=== PATIENT | female | born 1995 | race Two or more races ===

== ENCOUNTER 2021-08-05 21:26 | Emergency (ER) | payer OTHER ==
[~2021-08-05] VITALS: Ht 162.6 cm; Wt 59.0 kg
[2021-08-05] MEDS ORDERED: DICLOFENAC POTA50 MG PO (22:52)
[2021-08-05] MEDS ORDERED: CYCLOBENZAPRINE10 MG PO (22:52)
== END 2021-08-05 23:22 ==
LOC: ER 21:26
DX: M94.0 Chondrocostal junction syndrome [Tietze] (principal)

== ENCOUNTER 2021-12-03 05:37 | Inpatient (IN) | payer OTHER ==
[~2021-12-03] VITALS: Ht 157.5 cm; Wt 68.0 kg
[~2021-12-03 05:37] MED LIST: CYCLOBENZAPRINE10 MG PO; DICLOFENAC POTA50 MG PO
[2021-12-03] MEDS ORDERED: PRENATAL TABLE1 EAC5 PO (05:55)
[2021-12-03] MEDS ORDERED: FUSION PLUS CA1 EACH PO (05:56)
[2021-12-06] MEDS ORDERED: COLACE100 MG PO (06:46)
[2021-12-06] MEDS ORDERED: SIMETHICONE80 MG PO (06:47)
[2021-12-06] MEDS ORDERED: IBU600 MG PO (06:48)
== END 2021-12-06 14:29 | disposition home or self-care (01) | DRG 788 ==
LOC: OBS/DEL 05:37 → LDR 16:01 → OB/GYN 12-04 02:09
PROVIDERS: ADMIT Specialist; ATTEND Specialist
PROC: 4A1HXCZ Monitoring of Products of Conception, Cardiac Rate, External Approach (ICD-10-PCS; 2021-12-03)
PROC: 10D00Z1 Extraction of Products of Conception, Low, Open Approach (ICD-10-PCS; principal; 2021-12-04)
DX: O62.1 Secondary uterine inertia (principal); Z3A.38 38 weeks gestation of pregnancy; Z37.0 Single live birth; Z20.822 Contact with and (suspected) exposure to COVID-19

== ENCOUNTER 2024-05-05 15:43 | Outpatient (CLI) | payer OTHER ==
[~2024-05-05 15:43] MED LIST changes: +COLACE100 MG PO; +FUSION PLUS CA1 EACH PO; +IBU600 MG PO; +PRENATAL TABLE1 EAC5 PO; +SIMETHICONE80 MG PO
[2024-05-05] MEDS ORDERED: RINGERS SOLUTION,LACTATED 1,000 ML IV SCH (16:00)
[2024-05-05 16:30] VITALS: BP 104/68
[2024-05-05 18:02] LABS: HEMATOCRIT 31.6 % (36.0-45.00); HEMOGLOBIN 10.7 g/dL (12.0-15.00); MEAN CELL VOLUME 87.5 fL (80.00-100.00); MEAN CORPUSCULAR HEMOGLOBIN 29.6 pg (27.00-32.0); MEAN CORPUSCULAR HGB CONC 33.8 g/dl (32.0-36.0); PLATELET COUNT 280 K/uL (150-450); RED BLOOD COUNT 3.62 M/uL (4.00-6.00); RED CELL DISTRIBUTION WIDTH 12.8 % (11.5-14.5)
[2024-05-05 19:11] LABS: URINE APPEARANCE Clear; URINE BILIRRUBIN Negative (NEGATIVE); URINE BLOOD Negative; URINE COLOR Yellow; URINE GLUCOSE Negative (NEGATIVE); URINE KETONE 15 (NEGATIVE); URINE LEUKOCYTE Trace; URINE NITRATE Negative; URINE PROTEIN Negative (NEGATIVE); URINE UROBILINOGEN 0.2 E.U./dl
[2024-05-05 19:15] LABS: URINE BACTERIA 162.7 uL (0.0-1933); URINE EPITHELIAL CELLS 39.5 uL (0.0-38.8); URINE RBC 2.2 uL (0.0-20.8); URINE WBC 21.8 uL (0.0-23.2)
[2024-05-05 19:15] LABS: ALBUMIN 2.8 gm/dL (3.4-5.0); BILIRUBIN TOTAL 0.4 mg/dL (0.3-1.2); CALCIUM 8.6 mg/dL (8.5-10.1); CREATININE SERUM 0.64 mg/dL (0.55-1.02); GFR 108.96; GLOBULINA 4.4 G/DL (2.4-3.5); POTASSIUM 3.99 mEq/L (3.5-5.1); TOTAL PROTEIN 7.2 gm/dL (6.4-8.2)
[2024-05-05 19:25] LABS: URINE CAST 0.29 uL (0.0-1.40)
[2024-05-05 20:13] VITALS: BP 99/68
[2024-05-05 23:35] VITALS: BP 91/56
[2024-05-06 03:49] VITALS: BP 94/61
[2024-05-06 06:05] VITALS: BP 93/57; O2SAT 99
[2024-05-06 11:33] VITALS: BP 90/56
[2024-05-06 15:18] VITALS: BP 95/63
[2024-05-06 18:06] VITALS: BP 95/63
== END 2024-05-06 12:20 | disposition home or self-care (01) ==
LOC: OBS/DEL 15:43
PROVIDERS: Obstetrics & Gynecology; ATTEND Specialist
DX: O26.893 Other specified pregnancy related conditions, third trimester (principal); E86.0 Dehydration; R11.10 Vomiting, unspecified; R19.7 Diarrhea, unspecified; Z3A.29 29 weeks gestation of pregnancy

== ENCOUNTER 2024-06-29 14:09 | Outpatient (CLI) | payer OTHER ==
[2024-06-29 15:30] VITALS: BP 101/70
[2024-06-29 15:48] LABS: HEMATOCRIT 33.5 % (36.0-45.00); HEMOGLOBIN 11.3 g/dL (12.0-15.00); MEAN CELL VOLUME 88.7 fL (80.00-100.00); MEAN CORPUSCULAR HEMOGLOBIN 29.8 pg (27.00-32.0); MEAN CORPUSCULAR HGB CONC 33.6 g/dl (32.0-36.0); PH,URINE 6.5 (5.0-8.0); PLATELET COUNT 295 K/uL (150-450); RED BLOOD COUNT 3.78 M/uL (4.00-6.00); RED CELL DISTRIBUTION WIDTH 15.1 % (11.5-14.5); URINE APPEARANCE Clear; URINE BILIRRUBIN Negative (NEGATIVE); URINE BLOOD Negative; URINE COLOR Yellow; URINE GLUCOSE Negative (NEGATIVE); URINE KETONE Negative (NEGATIVE); URINE LEUKOCYTE Negative; URINE NITRATE Negative; URINE PROTEIN Negative (NEGATIVE); URINE UROBILINOGEN 0.2 E.U./dl
[2024-06-29 15:51] LABS: URINE BACTERIA 248.4 uL (0.0-1933); URINE EPITHELIAL CELLS 53.4 uL (0.0-38.8); URINE RBC 3.2 uL (0.0-20.8); URINE WBC 17.8 uL (0.0-23.2)
[2024-06-29 16:06] LABS: INR 0.96; PARTIAL THROMBOPLASTIN TIME 28.2 SECONDS (22.0-34.0); PROTHROMBIN TIME 10.5 SECONDS (9.0-11.5); URINE CAST 0.14 uL (0.0-1.40)
[2024-06-29 16:09] LABS: ALBUMIN 2.7 gm/dL (3.4-5.0); BILIRUBIN TOTAL 0.28 mg/dL (0.3-1.2); CALCIUM 9.1 mg/dL (8.5-10.1); CREATININE SERUM 0.64 mg/dL (0.55-1.02); GFR 108.96; GLOBULINA 4.3 G/DL (2.4-3.5); POTASSIUM 4.1 mEq/L (3.5-5.1)
== END 2024-06-29 19:01 | disposition home or self-care (01) ==
LOC: OBS/DEL 14:09
PROVIDERS: ATTEND Specialist
DX: O26.893 Other specified pregnancy related conditions, third trimester (principal); O26.849 Uterine size-date discrepancy, unspecified trimester; O36.8199 Decreased fetal movements, unspecified trimester, other fetus; O41.00X0 Oligohydramnios, unspecified trimester, not applicable or unspecified; Z3A.37 37 weeks gestation of pregnancy

== ENCOUNTER 2024-07-01 07:37 | Inpatient (IN) | payer OTHER ==
[~2024-07-01] VITALS: Ht 157.5 cm; Wt 68.0 kg
[2024-07-01 07:37] VITALS: BP 110/67; BP 1108/67
[2024-07-01] MEDS ORDERED: CEFAZOLIN SODIUM 1,000 MG VIAL IV SCH (08:15)
[2024-07-01] MEDS ORDERED: RINGERS SOLUTION,LACTATED 1,000 ML IV SCH (08:15)
[2024-07-01 08:31] LABS: HEMATOCRIT 35.3 % (36.0-45.00); MEAN CELL VOLUME 87.5 fL (80.00-100.00); MEAN CORPUSCULAR HEMOGLOBIN 29.7 pg (27.00-32.0); MEAN CORPUSCULAR HGB CONC 33.9 g/dl (32.0-36.0); PLATELET COUNT 288 K/uL (150-450); RED BLOOD COUNT 4.04 M/uL (4.00-6.00); RED CELL DISTRIBUTION WIDTH 15.4 % (11.5-14.5)
[2024-07-01] MEDS ORDERED: ONDANSETRON HCL 2 MG/ML VIAL ONE (08:58)
[2024-07-01] MEDS ORDERED: OXYTOCIN 10 UNITS/ML VIAL ONE (09:06)
[2024-07-01] MEDS ORDERED: ERYTHROMYCIN BASE OPHT 1GM EACH TUBE OP ONE (09:06)
[2024-07-01 09:08] LABS: INR 0.94; PARTIAL THROMBOPLASTIN TIME 29.9 SECONDS (22.0-34.0); PROTHROMBIN TIME 10.3 SECONDS (9.0-11.5)
[2024-07-01] MEDS ORDERED: ONDANSETRON HCL 2 MG/ML VIAL IV ONE (09:15)
[2024-07-01 09:24] LABS: ALBUMIN 3.1 gm/dL (3.4-5.0); BILIRUBIN TOTAL 0.38 mg/dL (0.3-1.2); CALCIUM 9.2 mg/dL (8.5-10.1); CREATININE SERUM 0.61 mg/dL (0.55-1.02); GFR 115.16; GLOBULINA 4.3 G/DL (2.4-3.5); POTASSIUM 4.06 mEq/L (3.5-5.1); TOTAL PROTEIN 7.4 gm/dL (6.4-8.2)
[2024-07-01] MEDS ORDERED: KETOROLAC TROMETHAMINE 60 MG VIAL IM ONE ×2 (10:30→13:16)
[2024-07-01] MEDS ORDERED: MORPHINE SULFATE 4 MG/ML VIAL IV ONE ×2 (11:45→12:15)
[2024-07-01] MEDS ORDERED: PROMETHAZINE HCL 25 MG/ML AMPUL IV SCH (12:00)
[2024-07-01] MEDS ORDERED: MEPERIDINE HCL/PF 50 MG/ML VIAL IV SCH (12:00)
[2024-07-01] MEDS ORDERED: KETOROLAC TROMETHAMINE 30 MG VIAL IM ONE (13:20)
[2024-07-01 13:54] VITALS: BP 111/72
[2024-07-01 16:13] VITALS: BP 112/69
[2024-07-01 17:11] LABS: HEMATOCRIT 31.6 % (36.0-45.00); HEMOGLOBIN 10.9 g/dL (12.0-15.00); MEAN CORPUSCULAR HEMOGLOBIN 30.1 pg (27.00-32.0); MEAN CORPUSCULAR HGB CONC 34.6 g/dl (32.0-36.0); PLATELET COUNT 230 K/uL (150-450); RED BLOOD COUNT 3.63 M/uL (4.00-6.00); RED CELL DISTRIBUTION WIDTH 15.5 % (11.5-14.5)
[2024-07-01 20:38] VITALS: BP 100/60
[2024-07-02] VITALS: BP 95/60
[2024-07-02] MEDS ORDERED: OxyCODONE HCL/APAP UD (PERCOCET) PO SCH (08:00)
[2024-07-02 08:55] VITALS: BP 104/72
[2024-07-02] MEDS ORDERED: SIMETHICONE 125 MG CAPSULE PO SCH (09:00)
[2024-07-02] MEDS ORDERED: DOCUSATE SODIUM 100MG CAP PO SCH (09:00)
[2024-07-02 13:20] VITALS: BP 90/60
[2024-07-02] MEDS ORDERED: IRON/V.C/V.B12/FOLIC A/VIT. E 1 CAPL CAPLET PO NR (14:30)
[2024-07-02 16:28] VITALS: BP 115/83
[2024-07-03] VITALS: BP 97/63
[2024-07-03 04:00] VITALS: BP 94/64
[2024-07-03 08:16] VITALS: BP 107/72
[2024-07-03] MEDS ORDERED: IRON/V.C/V.B12/FOLIC A/VIT. E 1 CAPL CAPLET PO SCH (09:00)
[2024-07-03] MEDS ORDERED: OxyCODONE HCL/APAP UD (PERCOCET) PO PRN (14:45)
[2024-07-03 16:15] VITALS: BP 107/70
== END 2024-07-03 16:59 | disposition home or self-care (01) | DRG 788 ==
LOC: LDR 07:37 → OB/GYN 10:38
PROVIDERS: ADMIT Specialist; ATTEND Specialist
PROC: 4A1HXCZ Monitoring of Products of Conception, Cardiac Rate, External Approach (ICD-10-PCS; 2024-07-01)
PROC: 10D00Z1 Extraction of Products of Conception, Low, Open Approach (ICD-10-PCS; principal; 2024-07-01 11:00)
DX: O34.211 Maternal care for low transverse scar from previous cesarean delivery (principal); Z3A.37 37 weeks gestation of pregnancy; Z37.0 Single live birth